=== PATIENT | male | born 1995 | race Caucasian/White ===

== ENCOUNTER 2021-01-29 14:41 | Emergency (ER) | payer OTHER ==
[~2021-01-29] VITALS: Ht 172.7 cm; Wt 90.9 kg
[2021-01-29 15:09] VITALS: BP 151/79
[2021-01-29] MEDS ORDERED: ALBUTEROL SULFATE HFA 90 MCG/PUFF 8 GM INHALER IH ONE (16:15)
== END 2021-01-29 16:19 | disposition home or self-care (01) ==
LOC: EMS 14:41
DX: J45.901 Unspecified asthma with (acute) exacerbation (principal); J06.9 Acute upper respiratory infection, unspecified; Z87.891 Personal history of nicotine dependence
CPT/HCPCS: 94640; 99283; J3535

== ENCOUNTER 2023-02-21 05:54 | Emergency (ER) | payer OTHER ==
[~2023-02-21] VITALS: Ht 172.7 cm; Wt 100.0 kg
[2023-02-21 05:58] VITALS: TEMP 99
[2023-02-21 06:08] LABS: COVID AG,FIA SOURCE NASAL SWAB
[2023-02-21 06:32] LABS: INFLUENZA TYPE A NEGATIVE FOR TYPE A (NEGATIVE); INFLUENZA TYPE B NEGATIVE FOR TYPE B (NEGATIVE); SARS-COV2 (COVID) ANTIGEN,FIA Negative (Negative)
[2023-02-21] MEDS ORDERED: IPRATROPIUM BROMIDE 0.5 MG/2.5 ML NEB SOLUTION NEB ONE (06:45)
[2023-02-21] MEDS ORDERED: ALBUTEROL SULFATE 2.5 MG/0.5 ML NEB SOLUTION NEB ONE (06:45)
[2023-02-21] MEDS ORDERED: PredniSONE 20 MG TABLET PO ONE (06:45)
[2023-02-21 06:49] VITALS: PULSE 70; RESP 18; O2SAT 96
[2023-02-21 07:04] VITALS: PULSE 85; RESP 16; O2SAT 98
[2023-02-21 08:45] VITALS: BP 145/95
[2023-02-21] MEDS ORDERED: PRED-554 PO (08:49)
[2023-02-21] MEDS ORDERED: ALBUTEROL SULFATE HFA 90 MCG/PUFF 8 GM INHALER IH ONE (09:00)
[2023-02-21 10:24] VITALS: PULSE 70; RESP 19; O2SAT 96
== END 2023-02-21 09:00 | disposition home or self-care (01) ==
LOC: EMS 06:02
DX: J45.901 Unspecified asthma with (acute) exacerbation (principal); J06.9 Acute upper respiratory infection, unspecified; Z87.891 Personal history of nicotine dependence; Z20.822 Contact with and (suspected) exposure to COVID-19
CPT/HCPCS: 99285; 71045; 87426; 87804; 94640; J7512; J3535; J7613